=== PATIENT | female | born 1975 | race Caucasian/White ===

== ENCOUNTER 2017-09-14 01:21 | Emergency (ER) | payer OTHER ==
[2017-09-14 02:02] VITALS: O2SAT 100
[2017-09-14] MEDS ORDERED: Sodium Chloride 0.9% 1,000 ML IV STA (03:00)
--- NOTE | 2017-09-14 03:35 | ED PDOC ---
HPI: Back Time Seen by Provider: 09/14/17 02:26 Chief Complaint (Nursing): Back Pain Chief Complaint (Provider): right sided flank pain and dysuria History Per: Patient History/Exam Limitations: no limitations Onset/Duration Of Symptoms: Days (x3) Current Symptoms Are (Timing): Still Present Additional Complaint(s): 42 year old female presents to the emergency department complaining of right sided flank pain associated with dysuria onset three days. Patient denies nausea , vomiting, and fever. She does note suprapubic pain with urination, however, but denies any hematuria. Yesterday she reports going to [facility] and being started on Levaquin, but persistent pain prompted the ED visit today PMD: [facility] MD Past Medical History Reviewed: Historical Data, Nursing Documentation, Vital Signs Vital Signs: Last Vital Signs Temp 98.8 F 09/14/17 01:58 Pulse 83 09/14/17 01:58 Resp 16 09/14/17 01:58 BP 126/83 09/14/17 01:58 Pulse Ox 100 09/14/17 01:58 - Medical History Other PMH: urinary tract infection - Surgical History Surgical History: No Surg Hx - Family History Family History: States: No Known Family Hx - Home Medications Home Medications: Ambulatory Orders Medication Instructions Recorded Levofloxacin [Levaquin] 500 mg PO DAILY #7 tablet 09/14/17 - Allergies Allergies/Adverse Reactions: Allergies Allergy/AdvReac Type Severity Reaction Status Date / Time No Known Allergies Allergy Verified 09/14/17 02:02 Review of Systems ROS Statement: Except As Marked, All Systems Reviewed And Found Negative Constitutional: Negative for: Fever Gastrointestinal: Positive for: Abdominal Pain (suprapubic with urination). Negative for: Nausea, Vomiting Genitourinary Female: Positive for: Dysuria. Negative for: Hematuria Musculoskeletal: Positive for: Back Pain (right sided flank pain) Physical Exam - Reviewed Nursing Documentation Reviewed: Yes Vital Signs Reviewed: Yes - Physical Exam Appears: Positive for: Non-toxic, No Acute Distress Head Exam: Positive for: ATRAUMATIC, NORMOCEPHALIC Skin: Positive for: Normal Color, Warm, Dry Eye Exam: Positive for: Normal appearance Neck: Positive for: Normal, Painless ROM, Supple Cardiovascular/Chest: Positive for: Regular Rate, Rhythm. Negative for: Murmur Respiratory: Positive for: Normal Breath Sounds. Negative for: Accessory Muscle Use, Respiratory Distress Gastrointestinal/Abdominal: Positive for: Normal Exam, Soft. Negative for: Tenderness Back: Positive for: R CVA Tenderness. Negative for: L CVA Tenderness, Vertebral Tenderness Extremity: Positive for: Normal ROM Neurologic/Psych: Positive for: Alert, Oriented (x3) - Laboratory Results Result Diagrams: 09/14/17 03:37 09/14/17 03:37 - ECG O2 Sat by Pulse Oximetry: 100 (RA) Pulse Ox Interpretation: Normal Medical Decision Making Medical Decision Making: Initial Impression: flank pain and dysuria Ddx: urinary tract infection, pyelonephritis Time: 3:00 Initial Plan: --BMP --ED urine --ED urine dipstick --CBC with differential --Sodium chloride 0.9% 1000ml IV --Toradol 15m IVP --Urine culture 3:20 Urine culture shows urinary tract infection. Scribe Attestation: Documented by Marilee Sheldon, acting as a scribe for Mamta Ring MD Provider Scribe Attestation: All medical entries made by the Scribe were at my direction and personally dictated by me. I have reviewed the chart and agree that the record accurately reflects my personal performance of the history, physical exam, medical decision making, and the department course for this patient. I have also personally directed, reviewed, and agree with the discharge instructions and disposition. Disposition - Clinical Impression Clinical Impression: UTI (urinary tract infection) - Patient ED Disposition Is Patient to be Admitted: No Doctor Will See Patient In The: Office Counseled Patient/Family Regarding: Studies Performed, Diagnosis, Need For Followup - Disposition Referrals: [facility] [Outside] Disposition: Routine/Home Disposition Time: 05:00 Condition: GOOD Additional Instructions: Take your medications as instructed. Follow up with your PCP in 2-3 days. Return for worsening. Prescriptions: Levofloxacin [Levaquin] 500 mg PO DAILY #7 tablet Instructions: Urinary Tract Infection, Adult (DC)
[2017-09-14 03:43] LABS: BASO % 0.3 % (0.0-2.0); HEMOGLOBIN 12.1 g/dL (12.0-16.0); LYMPH # 0.8 K/uL (1.0-4.3); LYMPH % 10.2 % (20.0-40.0); MEAN CELL VOLUME 87.2 fl (81.0-99.0); MEAN CORPUSCULAR HEMOGLOBIN 29.1 pg (27.0-31.0); MEAN CORPUSCULAR HGB CONC 33.4 g/dL (33.0-37.0); MEAN PLATELET VOLUME 10.5 fl (7.2-11.7); MONO # 0.5 K/uL (0.0-0.8); MONO % 6.2 % (0.0-10.0); NEUT # 6.8 K/uL (1.8-7.0); NEUT % 83.3 % (50.0-75.0); RBC 4.14 Mil/uL (3.80-5.20); RED CELL DISTRIBUTION WIDTH 13.9 % (11.5-14.5); WHITE BLOOD COUNT 8.2 K/uL (4.8-10.8)
[2017-09-14 03:53] LABS: BLOOD UREA NITROGEN 9 mg/dl (7-17); CALCIUM 9.4 mg/dL (8.4-10.2); GFR AFRICAN-AMERICAN > 60; GFR NON-AFRICAN AMERICAN > 60
[2017-09-14] MEDS ORDERED: cefTRIAXone (Rocephin) 1 gm Inj ONE (04:01)
[2017-09-14 05:24] VITALS: BP 125/57; PULSE 71; RESP 20; TEMP 97.8
== END 2017-09-14 06:07 | disposition home or self-care (01) ==
LOC: H.ER 01:21
DX: N39.0 Urinary tract infection, site not specified (principal); N12 Tubulo-interstitial nephritis, not specified as acute or chronic
CPT/HCPCS: 80048; 81025; 85025; 87086; 96360; 96365; 96374; 99283; J0696; J1885; J7030